=== PATIENT | female | born 1960 | race Caucasian/White ===

== ENCOUNTER → 2017-02-16 | Outpatient (CLI) | payer BC ==
[~2017-02-16] MED LIST: IBP800T PO; LOSA1TAB3 PO; LYRICA PO
--- NOTE | 2017-02-19 09:33 | Diagnostic Imaging Report ---
Bilateral screening mammogram 2D views with tomosynthesis The current study was also evaluated with a Computer Aided Detection (CAD) system. INDICATION: Screening. No current complaints stated on the questionnaire. COMPARISON: 03/02/16 FINDINGS: The breasts are composed of heterogeneously dense parenchyma which may decrease mammographic sensitivity. There are benign-appearing calcifications seen. Previously seen asymmetry with a dense tissue in the outer aspect of the left breast is less prominent on the current exam with mammography evaluation suggestive of summation artifact of parenchyma. There is less prominent central asymmetry in the right CC projection compared to the prior exam. There is no adverse development. IMPRESSION: No mammographic evidence of malignancy. ACR BI-RADS Category 2: Benign findings. Result letter will be mailed to the patient. Note: At least 10% of breast cancer is not imaged by mammography. Dictated by: Dictated on workstation # [id number]
== END ==
LOC: RAD 11:17
PROVIDERS: ATTEND Nurse Practitioner Family
DX: R92.8 Other abnormal and inconclusive findings on diagnostic imaging of breast (principal)
CPT/HCPCS: 77067

== ENCOUNTER → 2017-05-04 | Outpatient (CLI) | payer BC ==
--- NOTE | 2017-05-04 12:58 | Diagnostic Imaging Report ---
INDICATION: Bilateral leg swelling. COMPARISON: None. TECHNIQUE: Duplex, abdalla-scale and color-flow imaging of the bilateral lower extremity venous system was performed. FINDINGS: The common femoral vein, superficial femoral vein, profunda femoris, and popliteal veins are normal. These vessels show normal compressibility, color flow, and Doppler augmentation. The deep calf veins, although not very well seen, demonstrate no distinct intraluminal thrombus. IMPRESSION: Negative venous Doppler of the bilateral lower extremities. Dictated by: Dictated on workstation # [id number]
== END ==
LOC: CARD 11:36
PROVIDERS: ATTEND Internal Medicine Cardiovascular Disease
DX: M79.89 Other specified soft tissue disorders (principal)
CPT/HCPCS: 93970

== ENCOUNTER → 2017-05-08 | Outpatient (CLI) | payer BC ==
[~2017-05-08] VITALS: Ht 167.6 cm; Wt 117.0 kg
[~2017-05-08] MED LIST changes: +REGADENOSON 0.4 MG/5 ML SYR (LEXISCAN) IV ONE
[2017-05-08] MEDS: CATHETER FLUSH 10 ML SYR IV PRN (12:15)
[2017-05-08 13:16] VITALS: BP 121/68
--- NOTE | 2017-05-10 14:11 | STRESS TEST ---
DATE OF SERVICE: 05/08/2017 RESTING AND POST REGADENOSON TECHNETIUM-99M TETROFOSMIN SPECT CT IMAGING. ORDERING PHYSICIAN: Dr. Bond. PRIMARY CARE PHYSICIAN: Dr. Dozier. CLINICAL DIAGNOSIS: Shortness of breath. Baseline images were carried out after injection of 10.7 mCi of Technetium-99M Tetrofosmin. This was followed by 0.4 mg regadenoson and 29.3 mCi Tetrofosmin for stress imaging. The electrocardiogram showed sinus rhythm at baseline and did not change significantly with the regadenoson infusion. Review of images at rest and following stress does not indicate any significant perfusion defects consistent with significant myocardial ischemia or infarction. Gated images show normal global systolic function and normal regional wall motion. Left ventricular ejection fraction is calculated to be 70%. Left ventricular end diastolic volume is 63 mL. TID is absent (1.04). CONCLUSIONS: 1. No evidence of any significant myocardial ischemia or infarction on this study. 2. Normal regional wall motion. 3. Normal global left ventricular systolic function with a calculated ejection fraction of 70%. Job ID: [id number] DocumentID: [id number] Dictated Date: 05/10/2017 12:24:10 Milk Vendor Date: 05/10/2017 13:02:01 Dictated By: HOSEA BOND MD, MA, FACP, FACC,
== END ==
LOC: CARD 11:48
PROVIDERS: ATTEND Internal Medicine Cardiovascular Disease
DX: G47.33 Obstructive sleep apnea (adult) (pediatric) (principal); R00.2 Palpitations; M79.89 Other specified soft tissue disorders; R06.02 Shortness of breath
CPT/HCPCS: 78452; 93017

== ENCOUNTER 2017-06-25 13:41 | Outpatient (RCR) | payer BC, OTHER ==
[~2017-06-25 13:41] MED LIST changes: -REGADENOSON 0.4 MG/5 ML SYR (LEXISCAN) IV ONE
[2017-06-25 15:04] LABS: ABSOLUTE RETIC # 47 10e9/L (24-90); BASOPHILS % (AUTO) 0 % (0-10); EOSINOPHILS # (AUTO) 0.2 10^3/uL (0.0-0.3); EOSINOPHILS % (AUTO) 2 % (0-10); HEMATOCRIT 45 % (35-52); HEMOGLOBIN 14.9 G/DL (11.5-16.0); LYMPHOCYTES # (AUTO) 3.4 X 10^3 (1.0-4.0); LYMPHOCYTES % (AUTO) 27 % (12-44); MEAN CORPUSCULAR HEMOGLOBIN 29 PG (25-34); MEAN CORPUSCULAR HGB CONC 33 G/DL (32-36); MEAN CORPUSCULAR VOLUME 88 FL (80-99); MEAN PLATELET VOLUME 10.5 FL (7.4-10.4); MONOCYTES % (AUTO) 8 % (0-12); NEUTROPHILS % (AUTO) 64 % (42-75); PLATELET COUNT 284 10^3/uL (130-400); RED BLOOD COUNT 5.11 10^6/uL (4.35-5.85); RED CELL DISTRIBUTION WIDTH 14.1 % (10.0-14.5); RETICULOCYTE % 0.91 % (0.50-2.40); WHITE BLOOD COUNT 12.5 10^3/uL (4.3-11.0)
[2017-06-25 15:27] LABS: BAND NEUTROPHILS 0 %; BASOPHILS % (MANUAL) 0 %; EOSINOPHILS % (MANUAL) 1 %; LYMPHOCYTES % (MANUAL) 35 %; MONOCYTES % (MANUAL) 9 %; NEUTROPHILS % (MANUAL) 55 %
[2017-06-25 15:28] LABS: RBC MORPH NORMAL
== END 2017-08-13 11:09 | disposition home or self-care (01) ==
LOC: ONC 13:41
PROVIDERS: ATTEND Internal Medicine Hematology & Oncology
DX: D68.51 Activated protein C resistance (principal); I48.92 Unspecified atrial flutter; M79.7 Fibromyalgia; M79.89 Other specified soft tissue disorders
CPT/HCPCS: 85007; 85027; 85045; 99214

== ENCOUNTER → 2017-07-11 | Outpatient (CLI) | payer BC ==
[~2017-07-11] MED LIST changes: +IOHEXOL 350 MG/ML 100 ML (OMNIPAQUE 350) VIAL IV ONE; +NS 100 ML (IVPB) BAG IV ONE
[2017-07-11 12:38] LABS: ANION GAP 9 MMOL/L (5-14); BLOOD UREA NITROGEN 11 MG/DL (7-18); BUN/CREATININE RATIO 17; CALCIUM 9.3 MG/DL (8.5-10.1); CARBON DIOXIDE 27 MMOL/L (21-32); CHLORIDE 105 MMOL/L (98-107); CREATININE SERUM 0.64 MG/DL (0.60-1.30); GFR ESTIMATED > 60; GLUCOSE 112 MG/DL (70-105); POTASSIUM 3.5 MMOL/L (3.6-5.0); SODIUM 141 MMOL/L (135-145)
--- NOTE | 2017-07-11 13:13 | Diagnostic Imaging Report ---
PROCEDURE: CT head with and without contrast. TECHNIQUE: Multiple contiguous axial images were obtained through the brain before and after the administration of intravenous contrast. INDICATION: Headache. COMPARISON: CT head without contrast 04/22/2007. FINDINGS: No intracranial hemorrhage, mass effect, hydrocephalus or extra-axial fluid collection. No CT evidence of acute infarction. Moderate generalized cerebral and cerebellar parenchymal volume loss. No abnormal intracranial enhancement. No fractures. The paranasal sinuses and mastoids are clear. No acute osseous findings. IMPRESSION: No acute intracranial CT findings. Dictated by: Dictated on workstation # [id number]
== END ==
LOC: RAD 12:03
PROVIDERS: ATTEND Nurse Practitioner Family
DX: R51 Headache (principal)
CPT/HCPCS: 36415; 70470; 80048

== ENCOUNTER → 2017-08-14 | Outpatient (CLI) | payer BC ==
[~2017-08-14] MED LIST changes: -IOHEXOL 350 MG/ML 100 ML (OMNIPAQUE 350) VIAL IV ONE; -NS 100 ML (IVPB) BAG IV ONE
== END ==
LOC: ONC 11:32
PROVIDERS: ATTEND Internal Medicine Hematology & Oncology
DX: D72.829 Elevated white blood cell count, unspecified (principal); D68.51 Activated protein C resistance; M79.7 Fibromyalgia; I48.3 Typical atrial flutter; F32.9 Major depressive disorder, single episode, unspecified; G47.33 Obstructive sleep apnea (adult) (pediatric); E66.01 Morbid (severe) obesity due to excess calories; Z68.41 Body mass index [BMI] 40.0-44.9, adult; Z86.718 Personal history of other venous thrombosis and embolism; Z79.01 Long term (current) use of anticoagulants; Z79.899 Other long term (current) drug therapy
CPT/HCPCS: 99213

== ENCOUNTER → 2017-09-28 | Outpatient (CLI) | payer BC ==
--- NOTE | 2017-09-28 13:03 | Diagnostic Imaging Report ---
INDICATION: Right shoulder pain. COMPARISON: None. FINDINGS: Two views of the right shoulder were obtained. There is no fracture, dislocation, or other acute bony abnormality identified. The soft tissues appear unremarkable. No radiopaque foreign bodies identified. The visualized portions of the right lung are clear. IMPRESSION: No acute fractures or dislocations of the right shoulder. Dictated by: Dictated on workstation # [id number]
== END ==
LOC: RAD 12:37
PROVIDERS: ATTEND Orthopaedic Surgery
DX: M25.511 Pain in right shoulder (principal)
CPT/HCPCS: 73030

== ENCOUNTER → 2017-11-06 | Outpatient (CLI) | payer BC, OTHER | LOC: ONC 13:34 | PROVIDERS: ATTEND Internal Medicine Hematology & Oncology | DX: D72.829 Elevated white blood cell count, unspecified (principal); D68.51 Activated protein C resistance; M79.7 Fibromyalgia; I48.3 Typical atrial flutter; F32.9 Major depressive disorder, single episode, unspecified; G47.33 Obstructive sleep apnea (adult) (pediatric); E66.01 Morbid (severe) obesity due to excess calories; Z68.38 Body mass index [BMI] 38.0-38.9, adult; Z86.718 Personal history of other venous thrombosis and embolism; Z79.01 Long term (current) use of anticoagulants; Z79.899 Other long term (current) drug therapy | CPT/HCPCS: 99213 ==

== ENCOUNTER 2018-03-26 14:07 | Outpatient (RCR) | payer BC ==
[2018-03-26 14:31] LABS: BASOPHILS % (AUTO) 0 % (0-10); EOSINOPHILS # (AUTO) 0.3 10^3/uL (0.0-0.3); EOSINOPHILS % (AUTO) 2 % (0-10); HEMATOCRIT 46 % (35-52); HEMOGLOBIN 14.9 G/DL (11.5-16.0); LYMPHOCYTES # (AUTO) 3.6 X 10^3 (1.0-4.0); LYMPHOCYTES % (AUTO) 28 % (12-44); MEAN CORPUSCULAR HEMOGLOBIN 29 PG (25-34); MEAN CORPUSCULAR HGB CONC 33 G/DL (32-36); MEAN CORPUSCULAR VOLUME 87 FL (80-99); MEAN PLATELET VOLUME 9.7 FL (7.4-10.4); MONOCYTES # (AUTO) 0.9 X 10^3 (0.0-1.0); MONOCYTES % (AUTO) 7 % (0-12); NEUTROPHILS # (AUTO) 8.2 X 10^3 (1.8-7.8); NEUTROPHILS % (AUTO) 63 % (42-75); PLATELET COUNT 362 10^3/uL (130-400); RED BLOOD COUNT 5.23 10^6/uL (4.35-5.85); RED CELL DISTRIBUTION WIDTH 15.3 % (10.0-14.5)
[2018-03-26 14:48] LABS: ALANINE AMINOTRANSFERASE 20 U/L (0-55); ALBUMIN 4.3 GM/DL (3.2-4.5); ALKALINE PHOSPHATASE 98 U/L (40-136); BILIRUBIN,TOTAL 0.6 MG/DL (0.1-1.0); BUN/CREATININE RATIO 20; CALCIUM 9.3 MG/DL (8.5-10.1); CARBON DIOXIDE 25 MMOL/L (21-32); CHLORIDE 103 MMOL/L (98-107); CREATININE SERUM 0.74 MG/DL (0.60-1.30); GFR ESTIMATED > 60; GLUCOSE 104 MG/DL (70-105); POTASSIUM 3.9 MMOL/L (3.6-5.0); SODIUM 138 MMOL/L (135-145); TOTAL PROTEIN 7.1 GM/DL (6.4-8.2)
[2018-03-26 14:48] LABS: BILIRUBIN,URINE NEGATIVE (NEGATIVE); CLARITY,URINE SLIGHTLY CLOUDY; COLOR,URINE YELLOW; GLUCOSE, URINE (UA) NEGATIVE (NEGATIVE); KETONES,URINE NEGATIVE (NEGATIVE); LEUKOCYTE ESTERASE ,URINE NEGATIVE (NEGATIVE); NITRITE,URINE NEGATIVE (NEGATIVE); PH,URINE 7 (5-9); PROTEIN,URINE NEGATIVE (NEGATIVE); UROBILINOGEN,URINE NORMAL (NORMAL)
[2018-03-26 14:59] LABS: BACTERIA,URINE TRACE /HPF; SQUAMOUS EPITHELIAL CELL,UR 0-2 /HPF
--- NOTE | 2018-03-26 15:09 | Diagnostic Imaging Report ---
INDICATION: Elevated white count. TECHNIQUE: PA and lateral views of the chest were obtained at 3:07 PM. COMPARISON: 03/18/2018. FINDINGS: The heart and mediastinal silhouette are normal in appearance. The lungs appear clear. There is no pneumothorax. The minimal right pleural effusion seen previously has resolved. There is no pleural fluid at this time. IMPRESSION: Negative chest. Resolution of the minimal right pleural effusion compared with 03/18/2018. Dictated by: Dictated on workstation # [id number]
== END 2018-04-21 | disposition home or self-care (01) ==
LOC: RAD 14:07 → EDSTATUS 14:09
PROVIDERS: ATTEND Nurse Practitioner Family
DX: D72.829 Elevated white blood cell count, unspecified (principal)
CPT/HCPCS: 36415; 71046; 80053; 81000; 85025; 85027; 87324; 87493

== ENCOUNTER 2018-05-23 10:06 | Outpatient (RCR) | payer BC | END 2018-08-21 | disposition home or self-care (01) | LOC: RAD 10:06 | PROVIDERS: ATTEND Nurse Practitioner Family | DX: R30.0 Dysuria (principal); R19.7 Diarrhea, unspecified; D72.829 Elevated white blood cell count, unspecified ==

== ENCOUNTER 2018-05-23 13:11 | Outpatient (RCR) | payer BC, OTHER | END 2018-08-21 | disposition home or self-care (01) | LOC: ONC 13:11 | PROVIDERS: ATTEND Internal Medicine Hematology & Oncology | DX: D72.829 Elevated white blood cell count, unspecified (principal); D68.51 Activated protein C resistance; M79.7 Fibromyalgia; I48.3 Typical atrial flutter; F32.9 Major depressive disorder, single episode, unspecified; G47.33 Obstructive sleep apnea (adult) (pediatric); E66.01 Morbid (severe) obesity due to excess calories; Z68.38 Body mass index [BMI] 38.0-38.9, adult; Z86.718 Personal history of other venous thrombosis and embolism; Z79.01 Long term (current) use of anticoagulants; Z79.899 Other long term (current) drug therapy | CPT/HCPCS: 99213 ==

== ENCOUNTER → 2018-06-26 | Outpatient (CLI) | payer BC, OTHER ==
--- NOTE | 2018-06-26 11:56 | Diagnostic Imaging Report ---
PROCEDURE: CT sinuses without contrast. TECHNIQUE: Multiple contiguous axial images were obtained through the sinuses without the use of intravenous contrast. Coronal and sagittal reformations were then performed. INDICATION: Chronic sinusitis. FINDINGS: The frontal sinuses are clear. Ethmoid air cells and sphenoid sinus are clear. Bilateral maxillary sinuses are clear. No mucosal thickening or air-fluid levels are seen. Ostiomeatal units are patent. There is some nasal septal deviation to the right. Mastoids are well aerated. IMPRESSION: No evidence of sinusitis. Dictated by: Dictated on workstation # [id number]
--- NOTE | 2018-06-26 11:58 | Diagnostic Imaging Report ---
INDICATION: Routine screening. COMPARISON: Comparison is made with prior mammograms from 02/16/2017 and 02/23/2016. TECHNIQUE: 2D and 3D bilateral screening mammography was performed with computer-aided detection (CAD) system. FINDINGS: Both breasts are heterogeneously dense, limiting the sensitivity of mammography. There are benign calcifications in the outer left breast. Circumscribed density is identified in the outer portion of the left breast within the area of asymmetric increased density at mid to posterior depth. However, this is not well seen on the MLO view. This density is located approximately 13 cm from the nipple. Further evaluation with ultrasound is recommended. No other abnormalities are detected. The axillae are unremarkable. IMPRESSION: Circumscribed density in the outer left breast, 13 cm from the nipple. Further evaluation with ultrasound is recommended. ACR BI-RADS Category 0: Incomplete. (Needs additional imaging evaluation). Result letter will be mailed to the patient. Note: At least 10% of breast cancer is not imaged by mammography. Dictated by: Dictated on workstation # [id number]
== END ==
LOC: RAD 10:43
PROVIDERS: ATTEND Nurse Practitioner Family
DX: Z12.31 Encounter for screening mammogram for malignant neoplasm of breast (principal); R92.8 Other abnormal and inconclusive findings on diagnostic imaging of breast; J32.9 Chronic sinusitis, unspecified
CPT/HCPCS: 70486; 77067

== ENCOUNTER → 2018-06-28 | Outpatient (CLI) | payer BC, OTHER ==
[2018-06-28 12:50] LABS: BASOPHILS % (AUTO) 0 % (0-10); EOSINOPHILS # (AUTO) 0.8 10^3/uL (0.0-0.3); EOSINOPHILS % (AUTO) 8 % (0-10); HEMATOCRIT 43 % (35-52); LYMPHOCYTES # (AUTO) 2.7 X 10^3 (1.0-4.0); LYMPHOCYTES % (AUTO) 29 % (12-44); MEAN CORPUSCULAR HEMOGLOBIN 29 PG (25-34); MEAN CORPUSCULAR HGB CONC 33 G/DL (32-36); MEAN CORPUSCULAR VOLUME 89 FL (80-99); MEAN PLATELET VOLUME 9.8 FL (7.4-10.4); MONOCYTES # (AUTO) 0.7 X 10^3 (0.0-1.0); MONOCYTES % (AUTO) 8 % (0-12); NEUTROPHILS # (AUTO) 5.2 X 10^3 (1.8-7.8); NEUTROPHILS % (AUTO) 55 % (42-75); PLATELET COUNT 286 10^3/uL (130-400); RED BLOOD COUNT 4.85 10^6/uL (4.35-5.85); RED CELL DISTRIBUTION WIDTH 14.7 % (10.0-14.5); WHITE BLOOD COUNT 9.5 10^3/uL (4.3-11.0)
== END ==
LOC: LAB 12:33
PROVIDERS: ATTEND Family Medicine
DX: D72.829 Elevated white blood cell count, unspecified (principal)
CPT/HCPCS: 36415; 85025

== ENCOUNTER → 2018-07-11 | Outpatient (CLI) | payer BC, OTHER ==
--- NOTE | 2018-07-11 19:21 | Diagnostic Imaging Report ---
INDICATION: Left breast density noted on recent screening mammogram. Correlation is made with screening mammogram from 06/26/2018. FINDINGS: Sonographic interrogation of the outer left breast demonstrates a circumscribed cyst at the 3 o'clock location approximately 9 cm from the nipple. This measures 10 mm x 5 mm x 8 mm. This likely accounts for the density noted mammographically. No other sonographic abnormalities are seen. IMPRESSION: Simple cyst 3 o'clock location of the left breast, likely accounting for the mammographic abnormality. The patient may return to routine annual screening mammography. ACR BI-RADS Category 2: Benign findings. Dictated by: Dictated on workstation # [id number]
== END ==
LOC: RAD 10:08
PROVIDERS: ATTEND Nurse Practitioner Family
DX: N60.02 Solitary cyst of left breast (principal)
CPT/HCPCS: 76642

== ENCOUNTER 2018-09-09 10:29 | Outpatient (RCR) | payer BC | END 2018-12-08 | disposition home or self-care (01) | LOC: ONC 10:29 | PROVIDERS: ATTEND Internal Medicine Hematology & Oncology | DX: D72.829 Elevated white blood cell count, unspecified (principal); D68.51 Activated protein C resistance; M79.7 Fibromyalgia; I48.3 Typical atrial flutter; F32.9 Major depressive disorder, single episode, unspecified; G47.33 Obstructive sleep apnea (adult) (pediatric); E66.01 Morbid (severe) obesity due to excess calories; Z68.38 Body mass index [BMI] 38.0-38.9, adult; Z86.718 Personal history of other venous thrombosis and embolism; Z79.01 Long term (current) use of anticoagulants; Z79.899 Other long term (current) drug therapy | CPT/HCPCS: 99213 ==

== ENCOUNTER 2018-11-02 23:05 | Emergency (ER) | payer BC | END 2018-11-02 23:50 | disposition left against medical advice (07) | LOC: EDUNIT# 23:05 → ER 23:08 | DX: R07.89 Other chest pain (principal); R05 Cough; R50.9 Fever, unspecified ==

== ENCOUNTER → 2019-04-01 | Outpatient (CLI) | payer BC | LOC: EDSTATUS 03-10 11:03 → ONC 11:04 | PROVIDERS: ATTEND Internal Medicine Hematology & Oncology | DX: D72.829 Elevated white blood cell count, unspecified (principal); D68.51 Activated protein C resistance; M79.7 Fibromyalgia; I48.3 Typical atrial flutter; F32.9 Major depressive disorder, single episode, unspecified; G47.33 Obstructive sleep apnea (adult) (pediatric); E66.01 Morbid (severe) obesity due to excess calories; Z68.38 Body mass index [BMI] 38.0-38.9, adult; Z86.718 Personal history of other venous thrombosis and embolism; Z79.01 Long term (current) use of anticoagulants; Z79.899 Other long term (current) drug therapy | CPT/HCPCS: 99213 ==

== ENCOUNTER → 2019-06-16 | Outpatient (CLI) | payer BC ==
[~2019-06-16] MED LIST changes: +APIX5TAB PO; +CYAN500T62 PO; +DOXA2TAB2 PO; +DULO30CA3 PO; +GABA-486 PO; +IBUP-2055 PO; +LEVO5TAB28 PO; +LISD30CA3 PO; +NEBI2.5T5 PO; +OMEP20CA13 PO; +TRIA1CAP4 PO; +VIT1CAPS44 PO
== END ==
LOC: CARD 11:25
PROVIDERS: ATTEND Internal Medicine Cardiovascular Disease
DX: I48.0 Paroxysmal atrial fibrillation (principal); D68.51 Activated protein C resistance; G47.33 Obstructive sleep apnea (adult) (pediatric)

== ENCOUNTER 2019-06-17 10:18 | Day surgery (SDC) | payer BC ==
[~2019-06-17] VITALS: Ht 167 cm; Wt 116.9 kg
[2019-06-17] VITALS (9 sets, daily range): BP systolic 103–146; BP diastolic 64–85
[~2019-06-17 10:18] MED LIST changes: -APIX5TAB PO; -CYAN500T62 PO; -DOXA2TAB2 PO; -DULO30CA3 PO; -GABA-486 PO; -IBUP-2055 PO; -LEVO5TAB28 PO; -LISD30CA3 PO; -NEBI2.5T5 PO; -OMEP20CA13 PO; -TRIA1CAP4 PO; -VIT1CAPS44 PO
[2019-06-17] MEDS ORDERED: LIDOCAINE 1% INJ 20 ML 20 ML VIAL ONE (10:22)
[2019-06-17] MEDS ORDERED: HEParin (CATH LAB) 2,000 ML IV ONE (10:22)
[2019-06-17] MEDS ORDERED: NS IV 1000 ML 1,000 ML ONE (10:22)
[2019-06-17] MEDS ORDERED: NS IV 1000 ML 1,000 ML IV SCH ×2 (10:24→13:51)
[2019-06-17 10:48] LABS: HEMOGLOBIN 14.9 G/DL (11.5-16.0); MEAN PLATELET VOLUME 9.5 FL (7.4-10.4); RED CELL DISTRIBUTION WIDTH 14.9 % (10.0-14.5); WHITE BLOOD COUNT 10.7 10^3/uL (4.3-11.0)
[2019-06-17] MEDS ORDERED: TRIA1CAP4 PO ×2 (10:59)
[2019-06-17] MEDS ORDERED: GABA-486 PO ×2 (10:59)
[2019-06-17] MEDS ORDERED: LEVO5TAB28 PO ×2 (10:59)
[2019-06-17] MEDS ORDERED: VIT1CAPS44 PO ×2 (10:59)
[2019-06-17] MEDS ORDERED: LISD30CA3 PO ×2 (10:59)
[2019-06-17] MEDS ORDERED: NEBI2.5T5 PO ×2 (10:59)
[2019-06-17] MEDS ORDERED: APIX5TAB PO ×2 (10:59)
[2019-06-17] MEDS ORDERED: DULO30CA3 PO ×2 (10:59)
[2019-06-17] MEDS ORDERED: OMEP20CA13 PO ×2 (10:59)
[2019-06-17] MEDS ORDERED: DOXA2TAB2 PO ×2 (10:59)
[2019-06-17 11:00] LABS: INR 0.9 (0.8-1.4); PROTHROMBIN TIME PATIENT 12.6 SEC (12.2-14.7)
[2019-06-17 11:10] LABS: ALANINE AMINOTRANSFERASE 17 U/L (0-55); ALBUMIN 4.3 GM/DL (3.2-4.5); ALKALINE PHOSPHATASE 87 U/L (40-136); BILIRUBIN,TOTAL 0.7 MG/DL (0.1-1.0); BUN/CREATININE RATIO 14; CALCIUM 9.5 MG/DL (8.5-10.1); CARBON DIOXIDE 26 MMOL/L (21-32); CHLORIDE 105 MMOL/L (98-107); CHOLESTEROL 224 MG/DL (< 200); CREATININE SERUM 0.77 MG/DL (0.60-1.30); GFR ESTIMATED > 60; GLUCOSE 97 MG/DL (70-105); HDL CHOLESTEROL 43 MG/DL (40-60); POTASSIUM 3.5 MMOL/L (3.6-5.0); SODIUM 142 MMOL/L (135-145); TRIGLYCERIDES 142 MG/DL (<150); VLDL CHOLESTEROL 28 MG/DL (5-40)
[2019-06-17] MEDS ORDERED: IBUP-2055 PO ×2 (11:14)
[2019-06-17] MEDS ORDERED: CYAN500T62 PO ×2 (11:14)
--- NOTE | 2019-06-17 11:15 | NUR ---
SPOKE WITH PT (SHE HAD HER BOTTLES) WELL CALLING [facility] TO COMPLETE THE MED REC. PT WAS ABLE TO TELL ME HOW/WHEN SHE TAKES EACH MED. GABAPENTIN: DIRECTIONS " 1 CAP THREE TIMES DAILY" PT ONLY TAKES 1 CAP AT BEDTIME. THE FOLLOWING ARE FILL DATES: 02-08-2019 ELIQUIS #180/90DS 05-20-2019 OMEPRAZOLE #90/90DS 05-21-2019 GABAPENTIN #90/90DS 05-21-2019 DULOXETINE #90/90DS 05-21-2019 LEVOCETIRIZINE #30/DS 05-21-2019 BYSTOLIC #90/90DS 05-21-2019 TRIAMTERENE/HCTZ #90/90DS 05-21-2019 DOXAZOSIN #90/90DS 05-28-2019 VYVANSE #/DS OTC MEDS: VITAMIN B12 IBUPROFEN MAGNESIUM
[2019-06-17] MEDS ORDERED: fentaNYL INJECTION 100 MCG/2 ML AMP ONE (13:09)
[2019-06-17] MEDS ORDERED: MIDAZOLAM 5 MG/5 ML (VERSED) VIAL ONE (13:09)
--- NOTE | 2019-06-17 13:23 | Cardiac Procedure Note-CS/ASA ---
Pre-Procedure Note Pre-Op Procedure Note H&P Reviewed The H&P was reviewed, patient examined and no changes noted. Date H&P Reviewed: Jun 17, 2019 Time H&P Reviewed: 13:23 Conscious Sedation Pre-Proced Time 13:23 ASA Score 3 For ASA 3 and 4: Consider anesthesia and medical clearance. Also, for patients with a history of failed moderate sedation consider anesthesia. Airway Lungs Heart ASA score ASA 1: a normal healthy patient ASA 2: a patient with a mild systemic disease (mid diabetes, controlled hypertension, obesity ASA 3: a patient with a severe systemic disease that limits activity (angina, COPD, prior Myocardial infarction) ASA 4: a patient with an incapacitating disease that is a constant threat to life (CHF, renal failure) ASA 5: a moribund patient not expected to survive 24 hrs. (ruptured aneurysm) ASA 6: a declared brain- patient whose organs are being harvested. For emergent operations, add the letter E after the classification Mallampati Classification Grade 3 Sedation Plan Analgesia, Amnesia, Plan communicated to team members, Discussed options with patient/fam, Discussed risks with patient/fam The patient is an appropriate candidate to undergo the planned procedure, sedation, and anesthesia. The patient immediately re-assessed prior to indication. HOSEA DENISE MD FACP FAC CCDS Jun 17, 2019 13:23 POS
--- NOTE | 2019-06-17 13:55 | Discharge Inst-Cardiology ---
Discharge Inst-Cardiac Discharge Medications Continued Medications: Apixaban (Eliquis) 5 Mg Tablet 5 MG PO BID, TAB Cyanocobalamin (Vitamin B-12) (Vitamin B-12) 500 Mcg Tablet 500 MCG PO DAILY, TAB Doxazosin Mesylate (Doxazosin Mesylate) 2 Mg Tablet 2 MG PO HS, TAB Duloxetine HCl (Cymbalta) 30 Mg Capsule.dr 30 MG PO HS, CAP Gabapentin (Gabapentin) 100 Mg Capsule 100 MG PO HS for Neuropathic pain, CAP Levocetirizine Dihydrochloride (Xyzal) 5 Mg Tablet 5 MG PO HS, TAB Lisdexamfetamine Dimesylate (Vyvanse) 30 Mg Capsule 30 MG PO DAILY, CAP Nebivolol HCl (Bystolic) 2.5 Mg Tablet 2.5 MG PO DAILY, TAB Omeprazole (Omeprazole) 20 Mg Capsule.dr 20 MG PO DAILY, CAP Triamterene/Hydrochlorothiazid (Triamterene-Hctz 37.5-25 mg Cp) 1 Each Capsule 1 EACH PO DAILY, CAP Vit C/E/Zn/Coppr/Lutein/Zeaxan (Preservision Areds 2 Softgel) 1 Each Capsule 1 EACH PO BID, CAP Discontinued Medications: Ibuprofen (Ibuprofen) 200 Mg Tablet 400 MG PO Q8H PRN for PAIN-MILD (1-4), HOSEA GUERRERO MD FACP FAC CCDS Jun 17, 2019 13:55 POS
--- NOTE | 2019-06-17 13:55 | Discharge Inst-Post CATH ---
Discharge Inst-CATH/EP Post Cardiac Cath/EP D/C Inst Follow Up/Plan F/u with Dr Bond in 2 weeks ACTIVITY * Go Home directly and rest. * Limit activity of the leg (or wrist if it was used) for 7 days including aerobics, swimming, jogging, bicycling, etc. * Restrict stair-climbing for 7 days if possible, if not, climb up with your n on-cath leg, then bring together on the same step. * Avoid lifting, pushing, pulling or excessive movement of the affected ex tremity for 7 days. * Customary sexual activity may be resumed after 2 days-use caution not to use a position that strains or causes pain to the affected extremity. * No driving for 24 hours. * NO SMOKING. * Avoid straining for bowel movements for 7 days. * Gentle walking on level ground is allowed. * Returning to work will depend on the type of procedure and the results. Your doctor will discuss this with you. CALL YOUR DOCTOR FOR ANY OF THE FOLLOWING: *If bleeding from the puncture site occurs- Apply gentle pressure to site with clean cloth and call your doctor or EMS. * If a knot or lump forms under the skin, increases in size, or causes pain. * If bruising appears to be worsening or moving further down your leg instead of disappearing. * Temperature above 101 F. CARE OF YOUR GROIN INCISION; * Bruising or purple discoloration of the skin near the puncture site is common. * You may shower only, no bathtub bathing for 5 days. Be careful to avoid slipping as your leg may feel stiff. * If a closure device was used on your femoral artery, please see the attached guide regarding care of the device and your leg. * Leave dressing on FOR 24 hours. CARE OF YOUR WRIST INCISION; * Bruising or purple discoloration of the skin near the puncture site is common. * You may shower. * DO NOT submerge wrist. * Leave dressing on FOR [address]. [address] MD [facility] CCDS Jun 17, 2019 13:55 POS
[2019-06-17] MEDS ORDERED: KCL 20 MEQ TAB (K-DUR) PO ONE (14:00)
[2019-06-17] MEDS ORDERED: PATIENT MAY USE OWN MEDS, ALL PO SCH (14:00)
--- NOTE | 2019-06-17 16:26 | CARDIAC CATHETERIZATION ---
DATE OF SERVICE: 06/17/2019 CARDIAC CATHETERIZATION REPORT The patient is a 59-year-old lady, who has multiple coronary artery disease risk factors and who has symptoms of chest discomfort, palpitations, shortness of breath. Cardiac catheterization was carried out today after having obtained an informed consent. PROCEDURE: She was brought to the cardiac catheterization laboratory in a fasting state. Right groin was prepared and draped in the usual sterile fashion. Lidocaine 1% was used for local anesthesia. Modified Seldinger technique was used to advance a 5-Afghan sheath in right femoral artery, 5-Afghan JL4 catheter for left coronary angiography, 5-Afghan JR4 catheter for right coronary angiography, 5-Afghan pigtail catheter was used for left heart catheterization and left ventricular angiography. Angiography of the right femoral artery was carried out through the sheath at the end of the procedure and Mynx was used to achieve hemostasis. She tolerated the procedure well. HEMODYNAMICS: Left ventricular end-diastolic pressure following coronary angiography was 9 mmHg. There is no significant pressure gradient on pullback across the aortic valve. Ascending aortic pressure was 107/57 with a mean of 80 mmHg. CORONARY ANGIOGRAPHY: Left main coronary artery, left anterior descending artery, left circumflex artery, right coronary artery do not exhibit angiographically significant coronary artery disease. Right coronary artery is dominant. LEFT VENTRICULAR ANGIOGRAPHY: Left ventricular angiography was carried out in right anterior oblique projection. Global left ventricular systolic function is normal. No regional wall motion abnormalities are seen. Left ventricular ejection fraction approximately 60%. CONCLUSIONS: 1. No angiographically significant coronary artery disease. 2. Normal global left ventricular systolic function with an ejection fraction of approximately 60%. 3. Normal left ventricular end-diastolic pressure. DISCUSSION AND RECOMMENDATIONS: Based on results of the study, chest discomfort does not appear to be of cardiac origin. Continuing risk factor modification is advised. Outpatient followup is advised. Job ID: [id number] DocumentID: [id number] Dictated Date: 06/17/2019 13:44:46 Traditional Chinese Herbalist Date: 06/17/2019 16:25:25 Dictated By: HOSEA DENISE MD, MA, FACP, FACC,
--- NOTE | 2019-06-17 17:10 | NUR ---
IV ACCESS #20 TO LEFT AC DC'D- CATHETER TIP INTACT. DENIES PAIN AT THIS TIME. S/O AT BEDSIDE.
== END 2019-06-17 17:25 | disposition home or self-care (01) ==
LOC: CATH 10:18
PROVIDERS: ATTEND Internal Medicine Cardiovascular Disease
DX: R07.89 Other chest pain (principal); R00.2 Palpitations; R06.02 Shortness of breath; Z79.899 Other long term (current) drug therapy; G47.33 Obstructive sleep apnea (adult) (pediatric); D72.829 Elevated white blood cell count, unspecified; F33.1 Major depressive disorder, recurrent, moderate; I48.92 Unspecified atrial flutter; I49.5 Sick sinus syndrome; M79.10 Myalgia, unspecified site; D68.2 Hereditary deficiency of other clotting factors; Z87.891 Personal history of nicotine dependence; I10 Essential (primary) hypertension; R30.0 Dysuria; K21.9 Gastro-esophageal reflux disease without esophagitis; Z91.040 Latex allergy status; Z79.01 Long term (current) use of anticoagulants
CPT/HCPCS: 36415; 80053; 80061; 85027; 85610; 85730; 87081; 93458

== ENCOUNTER 2019-07-02 05:40 | Outpatient (CLI) | payer BC ==
[~2019-07-02] VITALS: Ht 167 cm; Wt 113.0 kg
[~2019-07-02 05:40] MED LIST changes: +APIX5TAB PO; +CYAN500T62 PO; +DOXA2TAB2 PO; +DULO30CA3 PO; +GABA-486 PO; +IBUP-2055 PO; +LEVO5TAB28 PO; +LISD30CA3 PO; +NEBI2.5T5 PO; +OMEP20CA13 PO; +TRIA1CAP4 PO; +VIT1CAPS44 PO
== END 2019-07-02 10:08 ==
LOC: PREOP 05:40
PROVIDERS: ATTEND Specialist
DX: Z01.818 Encounter for other preprocedural examination (principal)

== ENCOUNTER → 2019-07-03 | Outpatient (CLI) | payer BC ==
[2019-07-03 18:59] LABS: BUN/CREATININE RATIO 13; CREATININE SERUM 0.76 MG/DL (0.60-1.30); GFR ESTIMATED > 60
[2019-07-03 19:03] LABS: ABG OXYGEN SATURATION 99 % (94-100); ABG PCO2 35 MMHG (35-45); ABG PH 7.46 (7.37-7.43); ABG PO2 118 MMHG (79-93); ABG TCO2 25.7 MMOL/L (21.0-31.0)
[2019-07-03 19:05] LABS: INSPIRED O2 ROOM AIR; PATIENT TEMP 36.2; VENTILATOR NO
== END ==
LOC: LAB 18:29
PROVIDERS: ATTEND Internal Medicine Critical Care Medicine
DX: G47.33 Obstructive sleep apnea (adult) (pediatric) (principal); E66.01 Morbid (severe) obesity due to excess calories; Z87.891 Personal history of nicotine dependence; Z86.718 Personal history of other venous thrombosis and embolism
CPT/HCPCS: 36415; 36600; 82565; 82805; 84520

== ENCOUNTER 2019-07-04 09:30 | Day surgery (SDC) | payer BC, OTHER ==
[~2019-07-04] VITALS: Ht 167 cm; Wt 113.0 kg
[~2019-07-04 09:30] MED LIST changes: -HOLD METFORMIN - RECEIVED CONTRAST 20 ML VIAL IV SCH; -IOHEXOL 350 MG/ML 100 ML (OMNIPAQUE 350) VIAL IV ONE; -NS 100 ML (IVPB) BAG IV ONE
[2019-07-04] MEDS: TETRACAINE 0.5% OPHTH SOLN 4 ML BTL (SINGLE DOSE ONLY) OU PRN ×4 (09:44→10:10)
[2019-07-04] MEDS ORDERED: LIDOCAINE PF 1% 2 ML AMP IR PRN (09:45)
[2019-07-04] MEDS ORDERED: POVIDONE (BETADINE) OPHTH SOLN 5% 30 ML OP ONE (09:45)
[2019-07-04] MEDS ORDERED: MOXIFLOXACIN OPHTH SOLN 5 MG/ML 0.3 ML SYRINGE OP ONE (09:45)
[2019-07-04] MEDS ORDERED: TIMOLOL MALEATE 0.5% 5 ML (TIMOPTIC) BTL OU PRN (09:45)
[2019-07-04 09:48] VITALS: BP 103/78
[2019-07-04] MEDS: PHENYLEPHRINE 10% OPHTH (NEO-SYN) 5 ML BTL OU SCH ×3 (09:53→10:11)
[2019-07-04] MEDS: CYCLOPENTOLATE 1% (CYCLOGYL) 2 ML DROPS OP SCH ×3 (09:53→10:10)
--- NOTE | 2019-07-04 10:25 | Ophthalmologist Pre-Op Note ---
Pre-Operative Progress Note H&P Reviewed The H&P was reviewed, patient examined and no changes noted. Date H&P Reviewed: Jul 04, 2019 Time H&P Reviewed: 10:25 Pre-Op Dx Cataract, Right Eye MANNY KERR MD Jul 04, 2019 10:25 POS
[2019-07-04] MEDS ORDERED: MIDAZOLAM 2 MG/2 ML (VERSED) VIAL ONE (10:32)
--- NOTE | 2019-07-04 10:50 | Ophthalmology Operative Report ---
Cataract removal/placement IOL PREOPERATIVE DIAGNOSIS: Cataract Right Eye POSTOPERATIVE DIAGNOSIS: Cataract Right Eye PROCEDURE: Cataract removal and placement of posterior chamber implant, right eye SURGEON: Glenn Kerr ANESTHESIA: Topical with sedation COMPLICATIONS: None ESTIMATED BLOOD LOSS: Minimal DESCRIPTION OF PROCEDURE: After proper informed consent was obtained, the patient, a 59 female, was taken to the Operating Room and the right eye was anesthetized with tetracaine. The right eye was then prepped and draped in the usual manner. A wire lid speculum was placed. A paracentesis was made at the left hand position. Preservative free lidocaine was injected into the anterior chamber followed by viscoelastic. A clear corneal incision was made in the temporal position. A capsulorrhexis was preformed and the central nuclear and cortical material were removed. The posterior capsule was polished and Justin 21.5 AU00T0 IOL was placed into the capsular bag. The residual viscoelastic was aspirated and balanced saline solution was injected into the anterior chamber. Moxifloxacin was injected into the anterior chamber. The wound was checked and found to be water tight. The patient tolerated the procedure well without complications. GLENN KERR MD Jul 04, 2019 10:50 POS
[2019-07-04 11:00] VITALS: BP 143/98
[2019-07-04] MEDS ORDERED: acetaZOLAMIDE ER 500 MG CAP (DIAMOX SEQUELS) PO ONE (11:00)
--- NOTE | 2019-07-04 12:42 | Anesthesia-General Post-Op ---
MAC Patient Condition Mental Status/LOC: Same as Preop Cardiovascular: Satisfactory Nausea/Vomiting: Absent Respiratory: Satisfactory Pain: Controlled Complications: Absent Post Op Complications Complications None Follow Up Care/Instructions Patient Instructions None needed. Anesthesiology Discharge Order Discharge Order Patient is doing well, no complaints, stable vital signs, no apparent adverse anesthesia problems. No complications reported per nursing. SOTO HERNANDEZ CRNA Jul 04, 2019 12:42 POS
== END 2019-07-04 11:00 | disposition home or self-care (01) ==
LOC: SDC 09:30
PROVIDERS: ATTEND Specialist
DX: H25.11 Age-related nuclear cataract, right eye (principal); I10 Essential (primary) hypertension; K21.9 Gastro-esophageal reflux disease without esophagitis; E78.00 Pure hypercholesterolemia, unspecified; M79.7 Fibromyalgia; Z79.899 Other long term (current) drug therapy; Z87.891 Personal history of nicotine dependence; Z90.49 Acquired absence of other specified parts of digestive tract; Z85.3 Personal history of malignant neoplasm of breast; Z91.048 Other nonmedicinal substance allergy status; Z83.518 Family history of other specified eye disorder; Z83.3 Family history of diabetes mellitus

== ENCOUNTER → 2019-07-04 | Outpatient (CLI) | payer BC, OTHER ==
[~2019-07-04] MED LIST changes: +HOLD METFORMIN - RECEIVED CONTRAST 20 ML VIAL IV SCH; +IOHEXOL 350 MG/ML 100 ML (OMNIPAQUE 350) VIAL IV ONE; +NS 100 ML (IVPB) BAG IV ONE
--- NOTE | 2019-07-04 09:01 | Diagnostic Imaging Report ---
EXAMINATION: CT Chest with intravenous contrast. TECHNIQUE: Multiple contiguous axial images were obtained through the chest after the uneventful administration of intravenous contrast. All CT scans use one or more of the following dose optimizing techniques: automated exposure control, MA and/or KvP adjustment based on a patient size and exam type, or iterative reconstruction. INDICATION: SOB,HX OF SMOKING,FATIGUE,CARLOS COMPARISON: None available. FINDINGS: The lungs are clear without edema or pneumonia. No pleural effusion or pneumothorax. No suspicious nodules. Heart size is normal. No pericardial effusion. Aorta is normal in caliber. There is no axillary or supraclavicular lymphadenopathy. There is no mediastinal lymphadenopathy. Limited views of the upper abdomen show cholecystectomy clips. Cyst is seen in the left kidney. There are no suspicious osseus lesions. IMPRESSION: 1. No acute abnormality in the chest Dictated by: Dictated on workstation # [id number]
== END ==
LOC: RAD 07:39
PROVIDERS: ATTEND Internal Medicine Critical Care Medicine
DX: E66.01 Morbid (severe) obesity due to excess calories (principal); G47.33 Obstructive sleep apnea (adult) (pediatric); R06.02 Shortness of breath; Z87.891 Personal history of nicotine dependence; Z86.718 Personal history of other venous thrombosis and embolism
CPT/HCPCS: 71260

== ENCOUNTER → 2019-07-18 | Outpatient (CLI) | payer BC ==
[~2019-07-18] MED LIST changes: +RT-ALBUTEROL SULF 2.5 MG/3 ML PRE-MIX VIAL INH ONE
== END ==
LOC: RT 07:57
PROVIDERS: ATTEND Internal Medicine Critical Care Medicine
DX: R06.02 Shortness of breath (principal); R53.83 Other fatigue; E66.01 Morbid (severe) obesity due to excess calories; G47.33 Obstructive sleep apnea (adult) (pediatric); Z87.891 Personal history of nicotine dependence; Z86.718 Personal history of other venous thrombosis and embolism
CPT/HCPCS: 94060; 94640; 94726; 94729

== ENCOUNTER → 2019-07-18 | Outpatient (CLI) | payer BC ==
[~2019-07-18] MED LIST changes: -RT-ALBUTEROL SULF 2.5 MG/3 ML PRE-MIX VIAL INH ONE
--- NOTE | 2019-07-18 11:10 | Diagnostic Imaging Report ---
Indication: Routine screening. Comparison is made with prior mammogram from 06/26/2018 and 02/16/2017. 2-D and 3-D bilateral screening mammography was performed with CAD. Both breasts are heterogeneously dense, limiting the sensitivity of mammography. Coarse calcifications in the upper and outer aspect of the right breast appear to be increasing in number. Additional views are recommended. Circumscribed density in the lateral left breast has decreased in size since prior exam. No new mass is identified. Axillae are unremarkable. IMPRESSION: Increasing coarse calcification in the upper outer right breast. Additional views are recommended for further evaluation. BI-RADS 0 ACR BI-RADS Category 0: Incomplete. (Needs additional imaging evaluation). Result letter will be mailed to the patient. Note: At least 10% of breast cancer is not imaged by mammography. Dictated by: Dictated on workstation # [id number]
== END ==
LOC: RAD 07:55
PROVIDERS: ATTEND Nurse Practitioner Family
DX: Z12.31 Encounter for screening mammogram for malignant neoplasm of breast (principal); R92.1 Mammographic calcification found on diagnostic imaging of breast
CPT/HCPCS: 77067

== ENCOUNTER → 2019-08-20 | Outpatient (CLI) | payer BC ==
[~2019-08-20] MED LIST changes: -IBUP-2055 PO; +IBUP-2473 PO; +OMEP-280 PO; -OMEP20CA13 PO
--- NOTE | 2019-08-20 10:11 | Diagnostic Imaging Report ---
INDICATION: Right breast calcifications. Patient presents for additional views. COMPARISON: Correlation is made with the recent screening study from 07/18/2019 as well as prior mammograms dating back to 2014. TECHNIQUE: Unilateral right 2D and 3D diagnostic mammography was performed with CAD. FINDINGS: The calcifications in the upper and outer aspect of the right breast at mid depth have increased. The majority of these appear to be coarse and likely benign. There is a cluster along the medial margin of the calcifications which is indeterminate. No associated soft tissue mass is seen. IMPRESSION: Indeterminate calcifications in the upper outer right breast at mid depth. The majority of these appear to be coarse and likely benign; however, the patient does have a family history of breast carcinoma. After discussion with the patient, we decided to undergo tissue sampling. These would be amenable to stereotactic biopsy. ACR BI-RADS Category 4: Suspicious abnormality. Result letter will be mailed to the patient. Note: At least 10% of breast cancer is not imaged by mammography. Dictated by: Dictated on workstation # [id number]
== END ==
LOC: RAD 09:08
PROVIDERS: ATTEND Nurse Practitioner Family
DX: R92.1 Mammographic calcification found on diagnostic imaging of breast (principal); D68.51 Activated protein C resistance; I48.3 Typical atrial flutter; I10 Essential (primary) hypertension; E66.8 Other obesity; I48.0 Paroxysmal atrial fibrillation; R06.02 Shortness of breath; Z85.3 Personal history of malignant neoplasm of breast
CPT/HCPCS: 93225; 93226

== ENCOUNTER → 2019-11-20 | Outpatient (CLI) | payer BC ==
[~2019-11-20] VITALS: Ht 167.7 cm; Wt 114.5 kg
[~2019-11-20] MED LIST changes: +LIDOCAINE 1% INJ 20 ML 20 ML VIAL INJ ONE; +LIDOCAINE 1% INJ 20 ML 20 ML VIAL ONE; -OMEP-280 PO; +OMEP20CA18 PO
--- NOTE | 2019-11-20 18:40 | Diagnostic Imaging Report ---
INDICATION: Right breast calcifications. EXAMINATION: Patient presents for stereotactic biopsy. PROCEDURE: Patient was brought to the stereotactic suite and placed in a chair in a sitting upright position. The right breast was positioned lateral medial. The calcifications in the outer right breast were stereotactically targeted. Lateral right breast was prepped and draped in the usual sterile fashion. A small amount of 1% lidocaine was utilized for local anesthesia. An 8 gauge needle was advanced from a lateral medial approach and placed with its tip per stereotactic coordinates. Eight core samples were obtained utilizing a vacuum-assisted device. Specimen radiograph demonstrates calcifications within samples #2 and #3. The localizer clip was then deployed. Needle was removed and hemostasis was obtained. CC and LM 2D mammography was then performed demonstrating a marker clip in the lateral right breast. All images were viewed on a dedicated workstation. Patient tolerated the procedure well and left the department in stable condition. IMPRESSION: Successful stereotactic biopsy of right breast calcifications. Pathology results are currently pending. Dictated by: Dictated on workstation # [id number]
== END ==
LOC: RAD 12:57
PROVIDERS: ATTEND Nurse Practitioner Family
DX: D24.1 Benign neoplasm of right breast (principal); R92.0 Mammographic microcalcification found on diagnostic imaging of breast; N60.01 Solitary cyst of right breast
CPT/HCPCS: 19081

== ENCOUNTER → 2020-06-23 | Outpatient (CLI) | payer BC ==
[~2020-06-23] MED LIST changes: -LIDOCAINE 1% INJ 20 ML 20 ML VIAL INJ ONE; -LIDOCAINE 1% INJ 20 ML 20 ML VIAL ONE
== END ==
LOC: LABNPT 07:00
PROVIDERS: ATTEND Family Medicine
DX: Z11.59 Encounter for screening for other viral diseases (principal)
CPT/HCPCS: 87635

== ENCOUNTER → 2020-09-27 | Outpatient (CLI) | payer BC ==
[~2020-09-27] MED LIST changes: -CYAN500T62 PO; +CYAN500T8 PO
--- NOTE | 2020-09-28 12:17 | Diagnostic Imaging Report ---
INDICATION: Routine screening. COMPARISON: 07/18/2019 and 06/26/2018. TECHNIQUE: 2D and 3D bilateral screening mammography was performed with CAD. FINDINGS: Both breasts are heterogeneously dense, limiting the sensitivity of mammography. Calcifications in the outer right breast with marker clip are again noted. There has been development of a circumscribed ovoid mass in the upper outer left breast at posterior depth. Additional views are recommended. No other masses or malignant appearing microcalcifications are seen. The axillae are unremarkable. IMPRESSION: There is a circumscribed rounded density in the upper outer left breast at posterior depth. Further evaluation with additional mammographic views and ultrasound would be recommended. ACR BI-RADS Category 0: Incomplete. (Needs additional imaging evaluation). Result letter will be mailed to the patient. Note: At least 10% of breast cancer is not imaged by mammography. Dictated by: Dictated on workstation # [id number]
== END ==
LOC: RAD 15:21
PROVIDERS: ATTEND Family Medicine
DX: Z12.31 Encounter for screening mammogram for malignant neoplasm of breast (principal)
CPT/HCPCS: 77063; 77067

== ENCOUNTER → 2021-05-03 | Outpatient (CLI) | payer BC ==
--- NOTE | 2021-05-03 18:15 | Diagnostic Imaging Report ---
INDICATION: Routine screening. COMPARISON is made with prior mammograms 09/27/2020 and 07/18/2019. 2-D and 3-D bilateral screening mammography was performed with CAD. Both breasts are heterogeneously dense, limiting the sensitivity of mammography. A marker clip in the outer right breast with adjacent calcifications is again noted. Mass in the outer left breast appears slightly larger. This was described on prior mammogram and additional views were recommended at that time. The patient did not return for additional views. No other masses are seen. No malignant-appearing microcalcifications are identified. Axillae are unremarkable. IMPRESSION: BI-RADS 0 Circumscribed mass in the upper and outer aspect of the left breast mid to posterior depth. This appears slightly larger. The patient did not return for additional views in September. Additional views are again recommended to further evaluate the enlarging lesion in the upper outer left breast. ACR BI-RADS Category 0: Incomplete. (Needs additional imaging evaluation). Result letter will be mailed to the patient. Note: At least 10% of breast cancer is not imaged by mammography. Dictated by: Dictated on workstation # [id number]
== END ==
LOC: RAD 11:30
PROVIDERS: ATTEND Nurse Practitioner Family
DX: Z12.31 Encounter for screening mammogram for malignant neoplasm of breast (principal); N63.21 Unspecified lump in the left breast, upper outer quadrant
CPT/HCPCS: 77063; 77067

== ENCOUNTER → 2021-05-11 | Outpatient (CLI) | payer BC ==
--- NOTE | 2021-05-11 09:18 | Diagnostic Imaging Report ---
INDICATION: Left breast density. Patient presents for additional views. COMPARISON: Correlation is made with the screening study from 05/03/2021. TECHNIQUE: Unilateral left 2D and 3D diagnostic mammography was performed with CAD. This included spot compression CC and ML views as well as conventional 90 degree lateral views. FINDINGS: The density in the upper outer left breast persists. This is approximately 12 cm from the nipple. There is a second smaller density approximating 8 cm from the nipple in the upper and slightly outer left breast. Both of these areas should be evaluated with ultrasound. IMPRESSION: Left breast densities, as described. Further evaluation with ultrasound is recommended and will be performed today. ACR BI-RADS Category 0: Incomplete. (Needs additional imaging evaluation). Result letter will be mailed to the patient. Note: At least 10% of breast cancer is not imaged by mammography. Dictated by: Dictated on workstation # [id number]
--- NOTE | 2021-05-11 10:08 | Diagnostic Imaging Report ---
INDICATION: Left breast densities. Correlation is made with the diagnostic mammogram earlier same day and screening mammogram from 05/03/2021. Sonographic interrogation upper outer left breast was performed. There is a cyst at the 2:30 location of the left breast, 10 cm from the nipple measuring 15 mm x 12 mm x 17 mm. This likely accounts for the mammographic density. There is a smaller cyst at the 12:00 location 9 cm from the nipple measuring 6 mm x 4 mm x 4 mm. This too likely accounts for the 2nd smaller density noted mammographically. No solid masses are seen. IMPRESSION: BI-RADS Category 2 Simple cysts at the 12 and 2:30 location of the left breast, accounting for the mammographic densities. The patient may return to routine annual screening mammography. ACR BI-RADS Category 2: Benign findings. Result letter will be mailed to the patient. Note: At least 10% of breast cancer is not imaged by mammography. Dictated by: Dictated on workstation # [id number]
--- NOTE | 2021-05-11 10:35 | Diagnostic Imaging Report ---
PROCEDURE: US Renal Bilateral. TECHNIQUE: Multiple Real-time grayscale images were obtained over the kidneys in various projections bilaterally. INDICATION: Left renal cyst. FINDINGS: The right kidney measures 12.5 x 5.4 x 6.0 cm and the left kidney measures 12.0 x 6.2 x 6.5 cm. The cortical thickness and echogenicity are normal. The left kidney does contain a simple appearing cyst in the upper pole measuring 17 mm x 14 mm x 13 mm. No internal vascularity is seen. There is no calculus or hydronephrosis. The bladder demonstrates bilateral ureteral jets. IMPRESSION: Simple appearing left renal cyst. The study is otherwise unremarkable. Dictated by: Dictated on workstation # [id number]
== END ==
LOC: RAD 08:20
PROVIDERS: ATTEND Family Medicine
DX: N60.02 Solitary cyst of left breast (principal); N28.1 Cyst of kidney, acquired; I10 Essential (primary) hypertension
CPT/HCPCS: 76642; 76770; 77065; G0279

== ENCOUNTER → 2022-05-05 | Outpatient (CLI) | payer BC ==
[~2022-05-05] MED LIST changes: -TRIA1CAP4 PO; +TRIA1CAP84 PO
--- NOTE | 2022-05-05 11:44 | Diagnostic Imaging Report ---
Indication: Routine screening. Comparison is made with prior mammograms 05/03/2021 and 09/27/2020. 2-D and 3-D bilateral screening mammography was performed with CAD. Both breasts are heterogeneously dense, limiting the sensitivity of mammography. A marker clip in the outer right breast from prior biopsy is again noted. Numerous calcifications in the outer right breast appears stable. A density in the outer left breast is noted near the site of previously seen cyst. The cyst is no longer visualized but the density does appear to be somewhat prominent and additional views of this area are recommended. This should include spot compression views as well as rolled CC views. No definite correlate is seen on the MLO view but it is likely superior. No malignant-appearing microcalcifications are seen. Axillae are unremarkable. IMPRESSION: BI-RADS 0 Left breast density. Additional views are recommended for further evaluation. ACR BI-RADS Category 0: Incomplete. (Needs additional imaging evaluation). Result letter will be mailed to the patient. Note: At least 10% of breast cancer is not imaged by mammography. Dictated by: Dictated on workstation # [id number]
== END ==
LOC: RAD 10:43
PROVIDERS: ATTEND Family Medicine
DX: Z12.31 Encounter for screening mammogram for malignant neoplasm of breast (principal)
CPT/HCPCS: 77063; 77067

== ENCOUNTER → 2022-05-26 | Outpatient (CLI) | payer BC ==
--- NOTE | 2022-05-26 15:28 | Diagnostic Imaging Report ---
INDICATION: Left breast density. Patient presents for additional views. COMPARISON: Correlation is made with the screening study from 05/05/2022. EXAMINATION: Unilateral left 2D and 3D diagnostic mammography was performed. This includes spot compression CC, rolled CC as well as 90 degree lateral views. Additional views fail to demonstrate a discrete mass. The density noted in the outer left breast most likely represents superimposed fibroglandular tissue. No suspicious abnormality is seen. IMPRESSION: Additional views fail to demonstrate a discrete mass. The density noted in the outer left breast most likely represents superimposed tissue. Even so, sonographic interrogation of the upper outer left breast is recommended and will be performed today. ACR BI-RADS Category 0: Incomplete. (Needs additional imaging evaluation). Result letter will be mailed to the patient. Note: At least 10% of breast cancer is not imaged by mammography. Dictated by: Dictated on workstation # [id number]
--- NOTE | 2022-05-26 16:01 | Diagnostic Imaging Report ---
INDICATION: Left breast density. COMPARISON: Correlation is made with the diagnostic study of earlier the same day and screening mammogram from 05/05/2022. EXAMINATION: Sonographic interrogation of the upper outer left breast was performed. FINDINGS: There are some cystic structures in the upper outer left breast 2 o'clock location, 10 cm from the nipple. Simple appearing cyst measures approximately 4 mm. A slightly complex cyst measures 6 mm x 3 mm x 4 mm. There is some internal debris but no internal vascularity. No other abnormalities are seen. IMPRESSION: Simple as well as complex cysts in the upper outer left breast 2 o'clock location, likely accounting for the mammographic density. Follow-up left mammogram and left breast ultrasound in six months is recommended to show continued stability. ACR BI-RADS Category 3: Probably benign findings. Result letter will be mailed to the patient. Note: At least 10% of breast cancer is not imaged by mammography. Dictated by: Dictated on workstation # [id number]
== END ==
LOC: RAD 14:01
PROVIDERS: ATTEND Nurse Practitioner Family
DX: R92.2 Inconclusive mammogram (principal)
CPT/HCPCS: 76642; 77065; G0279

== ENCOUNTER → 2022-11-14 | Outpatient (CLI) | payer BC ==
[~2022-11-14] MED LIST changes: +CATHETER FLUSH 10 ML SYR IVP PRN; +REGADENOSON 0.4 MG/5 ML SYR (LEXISCAN) IV ONE
[2022-11-14 13:15] VITALS: BP 136/90
--- NOTE | 2022-11-16 09:01 | STRESS TEST ---
DATE OF SERVICE: 11/14/2022 RESTING AND POST REGADENOSON TECHNETIUM-99M TETROFOSMIN SPECT CT IMAGING ORDERING PHYSICIAN: Dr. Bond. PRIMARY PHYSICIAN: Dr. Dozier. CLINICAL DIAGNOSIS: Shortness of breath. Baseline images were carried out after injection of 10.98 mCi of technetium-99m tetrofosmin. This was followed by 0.4 mg regadenoson and 31.5 mCi of technetium-99m tetrofosmin for stress imaging. The electrocardiogram showed sinus rhythm at baseline. It did not change significantly with the regadenoson infusion. The patient noted some nausea following regadenoson infusion, which resolved in a few minutes. Review of images at rest and following stress does not indicate any significant perfusion defects consistent with any significant myocardial ischemia or infarction. Gated images show normal global left ventricular systolic function with normal regional wall motion. Left ventricular ejection fraction is calculated to be 78%. CONCLUSIONS: 1. No evidence of any significant myocardial ischemia or infarction on this study. 2. Normal regional wall motion. 3. Normal global left ventricular systolic function with a calculated ejection fraction 78%. Job ID: [id number] DocumentID: [id number] Dictated Date: 11/16/2022 08:17:02 Draw Machine Operator Date: 11/16/2022 08:59:00 Dictated By: HOSEA BOND MD; ANI; FACP; FACC;
== END ==
LOC: CARD 11:03
PROVIDERS: ATTEND Internal Medicine Cardiovascular Disease
DX: R06.09 Other forms of dyspnea (principal); R06.02 Shortness of breath
CPT/HCPCS: 78452; 93017; A9502

== ENCOUNTER → 2022-11-15 | Outpatient (CLI) | payer BC ==
[~2022-11-15] MED LIST changes: -CATHETER FLUSH 10 ML SYR IVP PRN; -REGADENOSON 0.4 MG/5 ML SYR (LEXISCAN) IV ONE
== END ==
LOC: CARD 09:25
PROVIDERS: ATTEND Internal Medicine Cardiovascular Disease
DX: R06.09 Other forms of dyspnea (principal)
CPT/HCPCS: 93306

== ENCOUNTER → 2023-01-05 | Outpatient (CLI) | payer BC ==
[~2023-01-05] MED LIST changes: +NEBI2.5T2 PO; -NEBI2.5T5 PO
--- NOTE | 2023-01-05 13:26 | Diagnostic Imaging Report ---
INDICATION: 6 month followup left breast density. Correlation is made to prior mammogram from 05/05/2022 and 05/03/2021. Unilateral left 2-D and 3-D diagnostic mammography was performed with CAD. Left breast is heterogeneously dense, limiting the sensitivity of mammography. Nodular density in the upper outer left breast is less prominent on today's study. No discrete mass is identified. No malignant-appearing microcalcifications are seen. Left axilla is unremarkable. IMPRESSION: Overall decrease in prominence of the nodular density in the upper outer left breast when compared with prior mammograms. Even so, directed sonographic interrogation of this area is recommended and will be performed today. Dictated by: Dictated on workstation # [id number]
--- NOTE | 2023-01-05 14:35 | Diagnostic Imaging Report ---
Indication: Six-month followup left breast cyst. Correlation is made with the prior left breast ultrasound from 05/26/2022. Sonographic interrogation upper outer left breast was performed. There is a small simple appearing cyst 2 o'clock location, 10 cm from the nipple measuring 3 mm in size. The larger complex cyst noted on previous study is no longer visualized. No solid masses are identified. IMPRESSION: A 3 mm simple cyst in the 2o'clock location of the left breast, 10 cm from the nipple. The patient may return to routine annual screening mammography. Dictated by: Dictated on workstation # [id number]
== END ==
LOC: RAD 12:55
PROVIDERS: ATTEND Family Medicine
DX: N60.02 Solitary cyst of left breast (principal)
CPT/HCPCS: 76642; 77065; G0279

== ENCOUNTER → 2023-06-05 | Outpatient (CLI) | payer BC ==
[~2023-06-05] MED LIST changes: +TRM50T PO
--- NOTE | 2023-06-05 15:12 | Diagnostic Imaging Report ---
EXAMINATION: 3D bilateral screening mammogram with CAD. INDICATION: Screening. COMPARISON: This study was compared to the prior exams of 01/05/2023, 05/05/2022, 05/03/2021, and 09/27/2020. PERSONAL HISTORY: At this time, there are no current complaints. FINDINGS: The breasts are heterogeneously dense and this may obscure small masses. Overall, there does not appear to have been any significant change. The calcifications and the stereotactic clip in the upper-outer quadrant of the right breast seen previously are again evident and no different. There is still a vague area of increased density in the upper-outer quadrant of the left breast but there is no recurrent cyst evident in this region. There is no primary or secondary sign of malignancy noted. IMPRESSION: There is no evidence for malignancy. ACR BI-RADS Category 1: Negative. Result letter will be mailed to the patient. Note: At least 10% of breast cancer is not imaged by mammography. Dictated by: Dictated on workstation # [id number]
== END ==
LOC: RAD 11:34
PROVIDERS: ATTEND Family Medicine
DX: Z12.31 Encounter for screening mammogram for malignant neoplasm of breast (principal)
CPT/HCPCS: 77063; 77067